=== PATIENT | female | born 1945 | race Caucasian/White ===

== ENCOUNTER 2020-06-06 13:30 | Outpatient (CLI) | payer MEDICARE ==
[2020-06-06 14:59] LABS: Bilirubin Neg (Negative); Blood, Urine 150 (Negative); Clarity Clear (Clear); Glucose, Urine (Dipstick) Normal (Negative); Ketone, Urine Negative (Negative); Leukocyte 25 (Negative); Nitrite Negative (Negative); Protein, Urine (Dipstick) Negative (Neg-Trace); Specific Gravity, Urine 1.015 (1.002-1.036); Urobilinogen Normal mg/dL (Less than 2)
[2020-06-06 15:13] LABS: Renal Epithelial 0-3 HPF (None Seen); Squamous Epithelial 0-3 HPF (0-3); WBC/HPF 0-3 HPF (0-3)
[2020-06-06 15:14] LABS: Bacteria/HPF Rare-Few HPF (None Seen); Mucous/LPF Rare LPF (<2+)
[2020-06-06 15:18] LABS: Mean Corpuscular HGB CONC 33.8 g/dL (32.0-36.0); Mean Corpuscular Hemoglobin 30.9 pg (27.0-33.0); Mean Corpuscular Volume 91.4 fl (81.6-98.3); Mean Platelet Volume 11.5 fl (7.4-10.4); Platelet Count 342 10x3/uL (150-450); RBC Distribution Width 13.8 % (11.5-14.5); Red Blood Cell (RBC) Count 4.53 10x6/uL (3.90-5.03); White Blood Cell (WBC) Count 14.9 10x3/uL (3.5-10.5)
[2020-06-06 16:40] LABS: Band 3 % (5-11); Eosinophils 2 % (0-10); Lymphocytes 46 % (21-51); Monocytes 7 % (0-10); Neutrophil 33 % (42-75); Reactive Lymphocytes 9 % (0-10)
[2020-06-06 16:42] LABS: Platelet Morphology Comment Appears Adequate
[2020-06-07 02:03] LABS: SARS-CoV-2 PCR by NAA Not Detected (NotDetected)
== END 2020-06-06 13:31 | disposition home or self-care (01) ==
LOC: LABBT 13:30
PROVIDERS: ATTEND Orthopaedic Surgery Hand Surgery
DX: Z01.818 Encounter for other preprocedural examination (principal); M65.312 Trigger thumb, left thumb; Z20.822 Contact with and (suspected) exposure to COVID-19
CPT/HCPCS: 81001; 85025; 93005; U0003; U0005; 87635; 93010

== ENCOUNTER 2020-06-20 12:58 | Outpatient (CLI) | payer MEDICARE, OTHER ==
[2020-06-20 14:48] LABS: Hemoglobin 13.9 g/dL (12.0-15.5); Mean Corpuscular HGB CONC 33.5 g/dL (32.0-36.0); Mean Corpuscular Volume 92.6 fl (81.6-98.3); Platelet Count 402 10x3/uL (150-450); RBC Distribution Width 13.5 % (11.5-14.5); Red Blood Cell (RBC) Count 4.48 10x6/uL (3.90-5.03); White Blood Cell (WBC) Count 14.2 10x3/uL (3.5-10.5)
[2020-06-20 15:03] LABS: MDiff Complete? YES
[2020-06-20 15:05] LABS: Bilirubin Neg (Negative); Blood, Urine 25 (Negative); Clarity Clear (Clear); Glucose, Urine (Dipstick) Normal (Negative); Ketone, Urine Negative (Negative); Leukocyte Negative (Negative); Nitrite Negative (Negative); Protein, Urine (Dipstick) Negative (Neg-Trace); Urobilinogen Normal mg/dL (Less than 2)
[2020-06-20 15:06] LABS: Eosinophils 1 % (0-10); Lymphocytes 55 % (21-51); Monocytes 3 % (0-10); Neutrophil 40 % (42-75); Platelet Morphology Comment Appears Adequate
[2020-06-20 15:13] LABS: Specific Gravity, Urine 1.005 (1.002-1.036)
[2020-06-20 15:19] LABS: RBC/HPF 0-3 HPF (0-3); WBC/HPF 0-3 HPF (0-3)
[2020-06-20 15:20] LABS: Bacteria/HPF Rare-Few HPF (None Seen); Squamous Epithelial 0-3 HPF (0-3)
[2020-06-20 22:35] LABS: SARS-CoV-2 PCR by NAA Not Detected (NotDetected)
== END 2020-06-20 12:59 | disposition home or self-care (01) ==
LOC: LABBT 12:58
PROVIDERS: ATTEND Orthopaedic Surgery Hand Surgery
DX: Z01.812 Encounter for preprocedural laboratory examination (principal); Z20.822 Contact with and (suspected) exposure to COVID-19; M65.312 Trigger thumb, left thumb
CPT/HCPCS: 81001; 85025; U0003; U0005; 87635

== ENCOUNTER 2020-06-23 05:39 | Day surgery (SDC) | payer MEDICARE ==
[2020-06-21 12:10] VITALS: BMI 27.7
[2020-06-23] MEDS ORDERED: Bupivacaine PF 0.5% 30 ML VIAL ONE (06:05)
[2020-06-23] MEDS ORDERED: Sodium Chloride 0.9% 10 ML ONE (06:05)
[2020-06-23] MEDS ORDERED: Bacitracin Zinc Ointment 30 gm TUBE ONE (06:05)
[2020-06-23] MEDS ORDERED: Betamet Acet/Betamet Na Ph 30 MG/5 ML VIAL ONE (06:05)
[2020-06-23] MEDS ORDERED: Fentanyl 100 MCG/2 ML VIAL ONE (06:12)
[2020-06-23] MEDS ORDERED: ePHEDrine Sulfate 50 MG/10 ML VIAL ONE (07:18)
[2020-06-23] MEDS ORDERED: Dexamethasone 20 MG/5 ML VIAL ONE (07:18)
[2020-06-23] MEDS ORDERED: Lidocaine 1% PF 5 ML VIAL ONE (07:18)
[2020-06-23] MEDS ORDERED: Ondansetron PF 4 MG/2 ML Vial ONE (07:18)
[2020-06-23] MEDS ORDERED: PROPOFOL 200 MG/20 ML VIAL ONE (07:18)
[2020-06-23] MEDS ORDERED: Ketorolac Tromethamine 30 MG/ML VIAL ONE (07:18)
== END 2020-06-23 09:20 | disposition home or self-care (01) ==
LOC: SDC 05:39
PROVIDERS: ATTEND Orthopaedic Surgery Hand Surgery
PROC: 0LN80ZZ Release Left Hand Tendon, Open Approach (ICD-10-PCS; principal; 2020-06-23)
DX: M65.312 Trigger thumb, left thumb (principal); M65.842 Other synovitis and tenosynovitis, left hand; I10 Essential (primary) hypertension; E03.9 Hypothyroidism, unspecified; E66.9 Obesity, unspecified; Z68.27 Body mass index [BMI] 27.0-27.9, adult; Z79.82 Long term (current) use of aspirin; Z79.899 Other long term (current) drug therapy; Z88.8 Allergy status to other drugs, medicaments and biological substances
CPT/HCPCS: J0690; J0702; J1100; J1885; J2405; J2704; J3010; J3490; S0020